=== PATIENT | male | born 1970 | race Hispanic/Latino ===

== ENCOUNTER 2017-10-24 11:30 | Day surgery (SDC) | payer OTHER ==
[2017-10-24] MEDS: VIGAMOX OD SCH ×3 (14:16→14:39)
[2017-10-24] MEDS: TETRACAINE 0.5% OD PRN ×3 (14:16→14:39)
--- NOTE | 2017-10-24 14:56 | Anesthesia Consultation ---
Anesthesia Consult and Med Hx Date of service: 10/24/17 - Airway Anesthetic Teeth Evaluation: Good ROM Head & Neck: Adequate Mental/Hyoid Distance: Inadequate Mallampati Class: Class II Intubation Access Assessment: Probably Good - Pulmonary Exam CTA: Yes - Cardiac Exam Cardiac Exam: RRR - Pre-Operative Health Status ASA Pre-Surgery Classification: ASA2 Proposed Anesthetic Plan: General, MAC - Pulmonary Hx Smoking: No - Cardiovascular System Hx Hypertension: Yes (5 YEARS) - Central Nervous System Hx Neuromuscular Disorder: No Hx Psychiatric Problems: No - Gastrointestinal Hx Gastroesophageal Reflux Disease: No - Endocrine Hx Renal Disease: No Hx Insulin Dependent Diabetes: No - Hematic Hx Anemia: No Hx Sickle Cell Disease: No - Other Systems Hx Alcohol Use: No Hx Substance Use: No Hx Cancer: No Hx Obesity: No
--- NOTE | 2017-10-24 14:57 | Anesthesia Day of Surgery ---
Anesthesia Day of Surgery - Day of Surgery Patient Examined: Yes Patient H&P Reviewed: Yes Patient is NPO: Yes
[2017-10-24] MEDS ORDERED: SUBLIMAZE ONE (15:51)
[2017-10-24] MEDS ORDERED: VERSED ONE (15:53)
[2017-10-24] MEDS ORDERED: mitoMYcin 0.02% Opth Soln *OR USE ONLY OP ONE (16:07)
--- NOTE | 2017-10-24 16:39 | Operative Report ---
Operative Report Operative Report: DATE OF SURGERY: [10/24/2017] PREOPERATIVE DIAGNOSIS: Recurrent erosion right eye POSTOPERATIVE DIAGNOSIS: Same OPERATIVE PROCEDURE: Superficial keratectomy with amniotic graft membrane and mitomycin-C SURGEON: Jessica Reed M.D. BUSINESS INITIATIVES MANAGER SURGEON: Sharon ANESTHESIA: Monitored anesthesia care in combination with topical and intracameral anesthesia because of the established specific risk of reflux, arrhythmias, or anxiety attacks associated with ocular manipulation, as well as the difficulty of the medicaid collection specialist to manage such potentially catastrophic events while simultaneously attempting to complete the surgical procedure and was deemed necessary for the patient's safety to have an Mechanic Recovery present during the procedure whenever possible. An Mechanic Recovery was utilized to regulate the intravenous sedation of the patient so the patient was cooperative yet not asleep in order for the patient to successfully maintain fixation of the eye on the operating light of the microscope. COMPLICATIONS: [No surgical complications] No blood loss. ALLERGIES: [No known drug allergies] PROGNOSIS: Excellent INDICATIONS FOR SURGERY: The patient is undergoing surgery in the hopes of eliminating or improving these visual difficulties. PROCEDURE: After arriving at the surgery center, the patient was given topical anesthetic as noted in the record. The patient was then taken into the operating room and given more anesthetic drops. The eyelids, lashes, and lid margins were scrubbed with Betadine solution, and the patient was draped. The Mechanic Recovery administered IV sedation and monitored the patient during the procedure. Kaitlynn bur was used to remove loose epithelium followed by approximating of Brown's membrane. Amniotic graft membrane was placed onto the cornea and retained right 10-0 nylon suture. Bandage contact lens was placed patient was taken to recovery room in stable condition
--- NOTE | 2017-10-24 16:41 | Short Stay Summary ---
Short Stay Documentation Date of service: 10/24/17 - History H&P: obtained from office - Allergies and Medications Current Medications: Allergies No Known Allergies Allergy (Verified 10/21/17 14:40) Home Medications Medication Instructions Recorded Confirmed Last Taken Type Allopurinol [Zyloprim] 300 mg PO TID 10/14/13 10/24/17 10/24/17 History Amlodipine Besylate [Norvasc] 5 mg PO DAILY 10/14/13 10/24/17 10/24/17 History Active Medications Moxifloxacin HCl (Vigamox) 1 drops OD Q5MIN [facility] Stop: 10/26/17 14:01 Last Admin: 10/24/17 14:39 Dose: 1 drops Prednisolone Acetate (Pred Forte 1%) 1 drops OD QID [facility]AN[facility] - Brief post op/procedure progress note Date of procedure: 10/24/17 Pre-op diagnosis: recurrent erosions right eye Post-op diagnosis: same Procedure: Superficial keratectomy amniotic graft membrane placement right eye Anesthesia: MAC Surgeon: ALEXYS ROBLEDO Estimated blood loss: none Pathology: none Condition: stable - Disposition Condition at discharge: Good Disposition: DC-01 TO HOME OR SELFCARE - Discharge Diagnoses (1) Recurrent erosion of cornea, right eye Status: Chronic Short Stay Discharge Plan Follow up with: GUMARO ENNIS MD [Primary Care Provider] - 7 Days
[2017-10-24 17:15] VITALS: BP 144/84
[2017-10-24] MEDS ORDERED: PRED FORTE 1% OD SCH (18:00)
--- NOTE | 2017-10-24 18:34 | Post Anesthesia Evaluation ---
- Post Anesthesia Evaluation Patient Participated: Yes Airway Patent: Yes Stable Respiratory Function: Yes Temp > 96.8F: Yes Pain Manageable: Yes Adequeate Hydration: Yes Anesthesia Complications: No
== END 2017-10-24 17:10 | disposition home or self-care (01) ==
LOC: OR 11:30
DX: H18.831 Recurrent erosion of cornea, right eye (principal); I10 Essential (primary) hypertension; Z79.899 Other long term (current) drug therapy; M10.9 Gout, unspecified
CPT/HCPCS: 65400; J2250; J3010; J7315; V2790